=== PATIENT | female | born 1985 | race Two or more races ===

== ENCOUNTER 2021-05-15 12:45 | Inpatient (IN) | payer OTHER ==
[~2021-05-15] VITALS: Ht 160 cm; Wt 84.4 kg
[2021-05-29] MEDS ORDERED: PRENATAL TABLE1 EAC3 (10:07)
== END 2021-05-31 13:42 | disposition home or self-care (01) | DRG 807 ==
LOC: LDR 05-27 12:45 → SURG-SUITE 05-30 13:12
PROVIDERS: ADMIT Obstetrics & Gynecology Maternal & Fetal Medicine; ATTEND Obstetrics & Gynecology Maternal & Fetal Medicine
PROC: 10E0XZZ Delivery of Products of Conception, External Approach (ICD-10-PCS; principal; 2021-05-29)
PROC: 0HQ9XZZ Repair Perineum Skin, External Approach (ICD-10-PCS; 2021-05-29)
PROC: 10907ZC Drainage of Amniotic Fluid, Therapeutic from Products of Conception, Via Natural or Artificial Opening (ICD-10-PCS; 2021-05-29)
PROC: 3E033VJ Introduction of Other Hormone into Peripheral Vein, Percutaneous Approach (ICD-10-PCS; 2021-05-29)
PROC: 4A1HXFZ Monitoring of Products of Conception, Cardiac Rhythm, External Approach (ICD-10-PCS; 2021-05-29)
DX: O70.0 First degree perineal laceration during delivery (principal); Z37.0 Single live birth; Z3A.40 40 weeks gestation of pregnancy

== ENCOUNTER 2021-05-27 10:48 | Outpatient (CLI) | payer OTHER | END 2021-05-27 11:46 | disposition home or self-care (01) | LOC: NST 10:48 | PROVIDERS: ATTEND Obstetrics & Gynecology Maternal & Fetal Medicine | DX: Z34.83 Encounter for supervision of other normal pregnancy, third trimester (principal) ==